=== PATIENT | female | born 1945 | race Caucasian/White ===

== ENCOUNTER → 2017-06-20 | Outpatient (CLI) | payer OTHER ==
[~2017-06-20] VITALS: Ht 152.4 cm; Wt 51.7 kg
[~2017-06-20] MED LIST: MIRALAX255 GM PO; NOHOMEMEDICATIONS
[2017-06-20 09:09] VITALS: BP 124/54
== END ==
LOC: PAIN 05:49
DX: M54.16 Radiculopathy, lumbar region (principal)

== ENCOUNTER → 2017-08-24 | Outpatient (CLI) | payer OTHER | LOC: RAD 09:56 | DX: J11.1 Influenza due to unidentified influenza virus with other respiratory manifestations (principal); J32.8 Other chronic sinusitis ==

== ENCOUNTER → 2019-02-20 | Outpatient (CLI) | payer OTHER ==
[2019-02-20 08:59] LABS: CREATININE 0.5 mg/dL (0.6-1.0)
== END ==
LOC: CAT 08:19
PROVIDERS: Family Medicine
DX: R17 Unspecified jaundice (principal); Z88.8 Allergy status to other drugs, medicaments and biological substances

== ENCOUNTER → 2019-02-25 | Outpatient (CLI) | payer OTHER | LOC: MRI 06:38 | DX: N28.1 Cyst of kidney, acquired (principal); R82.90 Unspecified abnormal findings in urine; R18.8 Other ascites ==